=== PATIENT | female | born 1970 | race Caucasian/White ===

== ENCOUNTER 2017-01-16 13:05 | Outpatient (CLI) | payer OTHER ==
--- NOTE | 2017-01-16 14:04 | DIAGNOSTIC IMAGING REPORT ---
PROCEDURE: XR ANKLE 3 OR 4 VIEWS - LEFT INDICATION: ACUTE LT ANKLE PX TECHNIQUE: Four views. COMPARISON: None. FINDINGS: Small accessory ossicles are seen off the medial malleolus, the lateral malleolus and anterior talus. It is unlikely that these represent old avulsion fractures. If the patient remains symptomatic an MRI of the ankle would better evaluate these ossicles and the associated ligaments. IMPRESSION: 1. No acute fracture. Soft tissue swelling.
--- NOTE | 2017-01-16 14:12 | DIAGNOSTIC IMAGING REPORT ---
PROCEDURE: XR FOOT 3 VIEWS - LEFT INDICATION: INJURY TECHNIQUE: Three views. COMPARISON: None. FINDINGS: Osseous structures and joint spaces are normal. IMPRESSION: 1. Normal left foot.
== END 2017-01-16 23:00 ==
LOC: XR SRH 13:05
DX: M25.572 Pain in left ankle and joints of left foot (principal); M79.89 Other specified soft tissue disorders